=== PATIENT | female | born 1980 | race Hispanic/Latino ===

== ENCOUNTER 2020-10-29 17:28 | Inpatient (IN) | payer OTHER ==
[~2020-10-29] VITALS: Ht 167.6 cm; Wt 108.9 kg
[2020-10-29] MEDS ORDERED: ASPIRIN 81 MG CHEW TAB PO ONE ×2 (18:15→20:00)
[2020-10-29 18:16] LABS: BASOPHILS # (AUTO) 0.1 (0.0-0.1); BASOPHILS % 0.8 % (0.0-1.0); EOSINOPHILS # (AUTO) 0.7 (0.0-0.4); HEMATOCRIT 30.7 % (34.2-44.1); LYMPHOCYTES # (AUTO) 3.7 (1.0-3.2); LYMPHOCYTES % 22.4 % (18.0-39.1); MEAN CORPUSCULAR HEMOGLOBIN 30.4 pg (28-32); MEAN CORPUSCULAR HGB CONC 32.6 g/dL (31-35); MEAN CORPUSCULAR VOLUME 93.3 fL (81-99); MONOCYTES % 5.9 % (4.4-11.3); NEUTROPHILS % 66.4 % (38.7-80.0); PLATELET COUNT 478 x10e3/uL (140-360); RED BLOOD COUNT 3.29 x10e6/uL (3.6-5.1); RED CELL DISTRIBUTION WIDTH 14.5 % (11.7-14.4)
[2020-10-29 18:28] LABS: INR 0.87; PARTIAL THROMBOPLASTIN TIME 28.4 seconds (23.8-35.5); PROTHROMBIN TIME 12.3 seconds (11.9-14.5)
[2020-10-29 18:37] LABS: ALBUMIN 1.5 g/dL (3.5-5.0); ALBUMIN/GLOBULIN RATIO 0.4 (0.8-2.0); ANION GAP 13.3 mmol/L (8-16); CALCIUM 7.5 mg/dL (8.4-10.2); CREATININE, SERUM 4.24 mg/dL (0.57-1.11); POTASSIUM 4.3 mmol/L (3.5-5.1)
[2020-10-29 18:46] LABS: CREATINE KINASE MB 18.3 ng/mL (0-5.0)
[2020-10-29 19:10] LABS: CLARITY,URINE SL CLOUDY (CLEAR); COLOR,URINE YELLOW (YELLOW)
[2020-10-29 19:11] LABS: KETONES,URINE NEGATIVE (NEGATIVE); LEUKOCYTE ESTERASE ,URINE NEGATIVE (NEGATIVE); NITRITE,URINE NEGATIVE (NEGATIVE); PROTEIN,URINE DIPSTICK >=300 (NEGATIVE); URINE UROBILINOGEN 0.2 mg/dL (0.2 - 1)
[2020-10-29 19:16] LABS: BACTERIA,URINE MODERATE /HPF; EPITHELIAL CELLS,URINE MODERATE /LPF; RBC,URINE 0-5 /HPF (0-5)
[2020-10-29] MEDS ORDERED: HYDRALAZINE HCL 20 MG/ML VIAL IV PRN (20:00)
[2020-10-29] MEDS ORDERED: METOPROLOL TARTRATE INJ 1 MG/ML VIAL IV ONE (20:00)
[2020-10-29] MEDS ORDERED: METOPROLOL TARTRATE INJ 1 MG/ML VIAL ONE (20:02)
[2020-10-29 20:09] LABS: AMPHETAMINES SCREEN,URINE NEGATIVE (NEGATIVE); BENZODIAZEPINES SCREEN,URINE NEGATIVE (NEGATIVE); PHENCYCLIDINE SCREEN,URINE NEGATIVE (NEGATIVE)
[2020-10-29] MEDS ORDERED: SODIUM BICARBONATE 8.4% INJ 50 ML SYR IV STA (20:21)
[2020-10-29] MEDS ORDERED: ONDANSETRON HCL INJ 2MG/ML 2ML 2 MG/ML VIAL IV STA (20:58)
[2020-10-29] MEDS ORDERED: LOSARTAN POTAS100 MG PO (21:59)
[2020-10-29] MEDS ORDERED: OZEMPIC0.25 MG/0. SC (21:59)
[2020-10-29] MEDS ORDERED: VITAMIN D PO (21:59)
[2020-10-29] MEDS ORDERED: AURYXIA210 MG PO (21:59)
[2020-10-29] MEDS ORDERED: SIMVASTATIN40 MG PO (21:59)
[2020-10-29] MEDS ORDERED: BASAGLAR K100 UNIT/1 SQ (21:59)
[2020-10-29] MEDS ORDERED: LASIX20 MG PO (21:59)
[2020-10-29 22:28] VITALS: BP 173/101
[2020-10-29 22:53] VITALS: BP 155/85
[2020-10-29 22:55] VITALS: BP 155/85
[2020-10-29 23:28] VITALS: BP 156/94
[2020-10-30] VITALS (18 sets, daily range): BP systolic 147–171; BP diastolic 74–95
[2020-10-30] MEDS ORDERED: TEMAZEPAM 7.5 MG CAP PO PRN (03:45)
[2020-10-30] MEDS ORDERED: POLYETHYLENE GLYCOL 3350 17 GM PACK PO PRN (03:45)
[2020-10-30 05:01] LABS: BASOPHILS # (AUTO) 0.1 (0.0-0.1); BASOPHILS % 0.9 % (0.0-1.0); EOSINOPHILS # (AUTO) 0.7 (0.0-0.4); EOSINOPHILS % 5.2 % (0.0-6.0); HEMATOCRIT 25.9 % (34.2-44.1); HEMOGLOBIN 8.5 g/dL (12.0-16.0); LYMPHOCYTES # (AUTO) 3.1 (1.0-3.2); LYMPHOCYTES % 24.6 % (18.0-39.1); MEAN CORPUSCULAR HEMOGLOBIN 30.2 pg (28-32); MEAN CORPUSCULAR HGB CONC 32.8 g/dL (31-35); MEAN CORPUSCULAR VOLUME 92.2 fL (81-99); MONOCYTES # (AUTO) 0.9 (0.2-0.8); MONOCYTES % 6.8 % (4.4-11.3); NEUTROPHILS % 62.1 % (38.7-80.0); PLATELET COUNT 400 x10e3/uL (140-360); RED BLOOD COUNT 2.81 x10e6/uL (3.6-5.1)
[2020-10-30 05:23] LABS: ALBUMIN 1.2 g/dL (3.5-5.0); ALBUMIN/GLOBULIN RATIO 0.4 (0.8-2.0); ANION GAP 9.8 mmol/L (8-16); CALCIUM 7.2 mg/dL (8.4-10.2); CREATININE, SERUM 3.99 mg/dL (0.57-1.11); POTASSIUM 3.8 mmol/L (3.5-5.1)
[2020-10-30 06:08] LABS: CREATINE KINASE MB 13.3 ng/mL (0-5.0)
[2020-10-30] MEDS: ACETAMINOPHEN 325 MG TAB PO PRN ×2 (07:40→16:29)
[2020-10-30] MEDS: FAMOTIDINE 20 MG TAB PO SCH ×2 (07:44→16:28)
[2020-10-30] MEDS ORDERED: HYDRALAZINE HCL 20 MG/ML VIAL IV PRN (07:45)
[2020-10-30] MEDS ORDERED: DEXTROSE 50% SYRINGE 50 ML IV PRN (07:45)
[2020-10-30] MEDS: DOCUSATE SODIUM 100 MG CAP PO SCH ×2 (08:35→16:28)
[2020-10-30] MEDS: HEPARIN SOD (PORCINE) 5,000 UNIT/ML VIAL SC SCH ×2 (08:51→21:00)
[2020-10-30] MEDS ORDERED: FUROSEMIDE 20 MG TAB PO SCH (09:00)
[2020-10-30] MEDS ORDERED: HEPARIN SOD (PORCINE) 1000 UNIT/ML SDV ONE (09:27)
[2020-10-30] MEDS ORDERED: LIDOCAINE HCL 1% LOCAL INJ 20 ML VIAL ONE (09:27)
[2020-10-30] MEDS ORDERED: INSULIN REGULAR, HUMAN 100 UNIT/1 ML 3ML VIAL SQ SCH (11:30)
[2020-10-30] MEDS ORDERED: CLONIDINE HCL 0.1 MG TAB PO PRN (11:45)
[2020-10-30] MEDS ORDERED: MANNITOL 25% 12.5GM/50 ML VIAL IV PRN (13:15)
[2020-10-30] MEDS ORDERED: HEPARIN SOD (PORCINE) 1000 UNIT/ML SDV IV PRN (13:15)
[2020-10-30] MEDS ORDERED: SODIUM CHLORIDE 0.9% 1000ML 2,000 ML IV PRN (13:15)
[2020-10-30 14:10] LABS: ANION GAP 14.3 mmol/L (8-16); CALCIUM 7.4 mg/dL (8.4-10.2); CREATININE, SERUM 3.98 mg/dL (0.57-1.11); POTASSIUM 4.3 mmol/L (3.5-5.1)
[2020-10-30] MEDS ORDERED: SODIUM CHLORIDE 0.9% 1000ML 2,000 ML ONE (14:21)
[2020-10-30] MEDS ORDERED: MANNITOL 25% 12.5GM/50ML 100 ML ONE (14:21)
[2020-10-30 14:42] LABS: CREATINE KINASE MB 13.3 ng/mL (0-5.0)
[2020-10-30 15:15] LABS: FREE T4 (FREE THYROXINE) 0.8 ng/dL (0.8-1.8); THYROID STIMULATING HORMONE 3.178 uIU/mL (0.350-4.940)
[2020-10-30] MEDS: INSULIN LISPRO 100 UNIT/1 ML 3ML VIAL SQ SCH ×2 (16:30→20:28)
[2020-10-30 18:41] LABS: BASOPHILS # (AUTO) 0.1 (0.0-0.1); BASOPHILS % 0.9 % (0.0-1.0); EOSINOPHILS # (AUTO) 0.5 (0.0-0.4); EOSINOPHILS % 3.7 % (0.0-6.0); HEMATOCRIT 28.3 % (34.2-44.1); HEMOGLOBIN 9.3 g/dL (12.0-16.0); LYMPHOCYTES # (AUTO) 2.4 (1.0-3.2); LYMPHOCYTES % 18.9 % (18.0-39.1); MEAN CORPUSCULAR HEMOGLOBIN 30.3 pg (28-32); MEAN CORPUSCULAR HGB CONC 32.9 g/dL (31-35); MEAN CORPUSCULAR VOLUME 92.2 fL (81-99); MONOCYTES # (AUTO) 0.9 (0.2-0.8); MONOCYTES % 6.9 % (4.4-11.3); NEUTROPHILS # (AUTO) 8.9 (2.1-6.9); NEUTROPHILS % 69.1 % (38.7-80.0); PLATELET COUNT 381 x10e3/uL (140-360); RED BLOOD COUNT 3.07 x10e6/uL (3.6-5.1); RED CELL DISTRIBUTION WIDTH 14.5 % (11.7-14.4)
[2020-10-30 19:06] LABS: CREATINE KINASE MB 10.9 ng/mL (0-5.0)
[2020-10-30] MEDS: NIFEDIPINE CR 30 MG TAB PO SCH (20:38)
[2020-10-30] MEDS: SIMVASTATIN 40 MG TAB PO SCH (20:38)
[2020-10-31] VITALS (10 sets, daily range): BP systolic 104–163; BP diastolic 56–87
[2020-10-31 05:53] LABS: BASOPHILS # (AUTO) 0.1 (0.0-0.1); BASOPHILS % 0.8 % (0.0-1.0); EOSINOPHILS # (AUTO) 0.7 (0.0-0.4); EOSINOPHILS % 5.8 % (0.0-6.0); HEMATOCRIT 28.4 % (34.2-44.1); HEMOGLOBIN 9.2 g/dL (12.0-16.0); LYMPHOCYTES # (AUTO) 3.3 (1.0-3.2); MEAN CORPUSCULAR HEMOGLOBIN 30.6 pg (28-32); MEAN CORPUSCULAR HGB CONC 32.4 g/dL (31-35); MEAN CORPUSCULAR VOLUME 94.4 fL (81-99); MONOCYTES # (AUTO) 0.8 (0.2-0.8); MONOCYTES % 6.9 % (4.4-11.3); NEUTROPHILS # (AUTO) 6.9 (2.1-6.9); NEUTROPHILS % 58.1 % (38.7-80.0); PLATELET COUNT 386 x10e3/uL (140-360); RED BLOOD COUNT 3.01 x10e6/uL (3.6-5.1); RED CELL DISTRIBUTION WIDTH 14.7 % (11.7-14.4)
[2020-10-31 06:05] LABS: CHOL/HDL RATIO 2.3 (3.0-3.6); MAGNESIUM 2.1 MG/DL (1.3-2.1); PHOSPHORUS 5.5 MG/DL (2.3-4.7)
[2020-10-31 06:17] LABS: ALBUMIN 1.3 g/dL (3.5-5.0); ALBUMIN/GLOBULIN RATIO 0.4 (0.8-2.0); ANION GAP 11.1 mmol/L (8-16); CALCIUM 7.4 mg/dL (8.4-10.2); CREATININE, SERUM 3.81 mg/dL (0.57-1.11); POTASSIUM 4.1 mmol/L (3.5-5.1)
[2020-10-31 06:25] LABS: THYROID STIMULATING HORMONE 4.179 uIU/mL (0.350-4.940)
[2020-10-31] MEDS: FAMOTIDINE 20 MG TAB PO SCH ×2 (07:30→17:24)
[2020-10-31] MEDS: INSULIN LISPRO 100 UNIT/1 ML 3ML VIAL SQ SCH ×4 (07:30→20:21)
[2020-10-31] MEDS: DOCUSATE SODIUM 100 MG CAP PO SCH ×2 (07:52→17:24)
[2020-10-31] MEDS ORDERED: SODIUM CHLORIDE 0.9% IV ONE (09:30)
[2020-10-31] MEDS ORDERED: ALTEPLASE IV ONE ×2 (09:30)
[2020-10-31] MEDS ORDERED: DEXTROSE 5% IV ONE (09:30)
[2020-10-31] MEDS ORDERED: ALTEPLASE RECOMBINANT 2 MG/2 ML VIAL IV NR (09:45)
[2020-10-31] MEDS: HEPARIN SOD (PORCINE) 5,000 UNIT/ML VIAL SC SCH ×2 (09:47→20:32)
[2020-10-31] MEDS: ACETAMINOPHEN 325 MG TAB PO PRN (13:36)
[2020-10-31] MEDS: NIFEDIPINE CR 30 MG TAB PO SCH (20:31)
[2020-10-31] MEDS: SIMVASTATIN 40 MG TAB PO SCH (20:31)
[2020-11-01] VITALS (9 sets, daily range): BP systolic 117–164; BP diastolic 63–88
[2020-11-01 06:01] LABS: BASOPHILS # (AUTO) 0.1 (0.0-0.1); BASOPHILS % 0.7 % (0.0-1.0); EOSINOPHILS # (AUTO) 0.8 (0.0-0.4); EOSINOPHILS % 6.6 % (0.0-6.0); HEMATOCRIT 24.5 % (34.2-44.1); HEMOGLOBIN 7.7 g/dL (12.0-16.0); LYMPHOCYTES # (AUTO) 3.1 (1.0-3.2); LYMPHOCYTES % 27.5 % (18.0-39.1); MEAN CORPUSCULAR HEMOGLOBIN 29.6 pg (28-32); MEAN CORPUSCULAR HGB CONC 31.4 g/dL (31-35); MEAN CORPUSCULAR VOLUME 94.2 fL (81-99); MONOCYTES % 8.5 % (4.4-11.3); NEUTROPHILS # (AUTO) 6.4 (2.1-6.9); NEUTROPHILS % 56.1 % (38.7-80.0); PLATELET COUNT 282 x10e3/uL (140-360); RED CELL DISTRIBUTION WIDTH 14.4 % (11.7-14.4)
[2020-11-01 06:27] LABS: ANION GAP 10.2 mmol/L (8-16); CREATININE, SERUM 3.44 mg/dL (0.57-1.11); POTASSIUM 4.2 mmol/L (3.5-5.1)
[2020-11-01 06:36] LABS: CALCIUM 6.9 mg/dL (8.4-10.2)
[2020-11-01] MEDS ORDERED: CALCIUM GLUCONATE 10% INJ 4.65 MEQ in SODIUM CHLORIDE 0.9% 50ML 50 ML IV ONE (07:45)
[2020-11-01] MEDS: INSULIN LISPRO 100 UNIT/1 ML 3ML VIAL SQ SCH ×4 (08:30→20:54)
[2020-11-01] MEDS: HEPARIN SOD (PORCINE) 5,000 UNIT/ML VIAL SC SCH ×2 (08:30→21:47)
[2020-11-01] MEDS: DOCUSATE SODIUM 100 MG CAP PO SCH ×2 (08:37→17:38)
[2020-11-01] MEDS: FAMOTIDINE 20 MG TAB PO SCH ×2 (08:37→17:38)
[2020-11-01] MEDS: METOPROLOL TARTRATE 25 MG TAB PO SCH ×2 (08:38→17:39)
[2020-11-01] MEDS ORDERED: SODIUM CHLORIDE 0.9% 250ML 250 ML ONE (10:24)
[2020-11-01] MEDS: ACETAMINOPHEN 325 MG TAB PO PRN ×2 (10:33→22:34)
[2020-11-01] MEDS: NIFEDIPINE CR 30 MG TAB PO SCH (21:08)
[2020-11-01] MEDS: SIMVASTATIN 40 MG TAB PO SCH (22:33)
[2020-11-02] VITALS (9 sets, daily range): BP systolic 130–160; BP diastolic 64–96
[2020-11-02 05:14] LABS: BASOPHILS # (AUTO) 0.1 (0.0-0.1); BASOPHILS % 0.8 % (0.0-1.0); EOSINOPHILS # (AUTO) 0.8 (0.0-0.4); EOSINOPHILS % 6.9 % (0.0-6.0); HEMATOCRIT 25.7 % (34.2-44.1); HEMOGLOBIN 8.2 g/dL (12.0-16.0); LYMPHOCYTES # (AUTO) 3.1 (1.0-3.2); LYMPHOCYTES % 26.5 % (18.0-39.1); MEAN CORPUSCULAR HEMOGLOBIN 30.1 pg (28-32); MEAN CORPUSCULAR HGB CONC 31.9 g/dL (31-35); MEAN CORPUSCULAR VOLUME 94.5 fL (81-99); MONOCYTES # (AUTO) 0.9 (0.2-0.8); MONOCYTES % 7.7 % (4.4-11.3); NEUTROPHILS # (AUTO) 6.8 (2.1-6.9); NEUTROPHILS % 57.6 % (38.7-80.0); PLATELET COUNT 280 x10e3/uL (140-360); RED BLOOD COUNT 2.72 x10e6/uL (3.6-5.1); RED CELL DISTRIBUTION WIDTH 14.2 % (11.7-14.4)
[2020-11-02 05:37] LABS: ANION GAP 12.2 mmol/L (8-16); CALCIUM 7.1 mg/dL (8.4-10.2); CREATININE, SERUM 4.25 mg/dL (0.57-1.11); POTASSIUM 4.2 mmol/L (3.5-5.1)
[2020-11-02] MEDS: FAMOTIDINE 20 MG TAB PO SCH ×2 (07:30→16:56)
[2020-11-02] MEDS: DOCUSATE SODIUM 100 MG CAP PO SCH ×2 (09:00→16:57)
[2020-11-02] MEDS: HEPARIN SOD (PORCINE) 5,000 UNIT/ML VIAL SC SCH ×2 (09:00→19:59)
[2020-11-02] MEDS: INSULIN LISPRO 100 UNIT/1 ML 3ML VIAL SQ SCH ×4 (09:09→21:00)
[2020-11-02] MEDS: METOPROLOL TARTRATE 25 MG TAB PO SCH ×2 (09:10→16:57)
[2020-11-02] MEDS ORDERED: SODIUM CHLORIDE 0.9% 1000ML 1,000 ML ONE (16:30)
[2020-11-02] MEDS: NIFEDIPINE CR 30 MG TAB PO SCH (22:10)
[2020-11-02] MEDS: SIMVASTATIN 40 MG TAB PO SCH (22:10)
[2020-11-03] VITALS (8 sets, daily range): BP systolic 115–152; BP diastolic 55–85
[2020-11-03 04:52] LABS: BASOPHILS # (AUTO) 0.1 (0.0-0.1); BASOPHILS % 0.7 % (0.0-1.0); EOSINOPHILS # (AUTO) 0.7 (0.0-0.4); HEMATOCRIT 26.5 % (34.2-44.1); HEMOGLOBIN 8.4 g/dL (12.0-16.0); LYMPHOCYTES # (AUTO) 2.3 (1.0-3.2); LYMPHOCYTES % 19.6 % (18.0-39.1); MEAN CORPUSCULAR HEMOGLOBIN 30.2 pg (28-32); MEAN CORPUSCULAR HGB CONC 31.7 g/dL (31-35); MEAN CORPUSCULAR VOLUME 95.3 fL (81-99); MONOCYTES # (AUTO) 0.8 (0.2-0.8); MONOCYTES % 6.6 % (4.4-11.3); NEUTROPHILS # (AUTO) 7.7 (2.1-6.9); NEUTROPHILS % 66.6 % (38.7-80.0); PLATELET COUNT 294 x10e3/uL (140-360); RED BLOOD COUNT 2.78 x10e6/uL (3.6-5.1); RED CELL DISTRIBUTION WIDTH 13.6 % (11.7-14.4)
[2020-11-03 05:16] LABS: ANION GAP 10.3 mmol/L (8-16); CALCIUM 7.1 mg/dL (8.4-10.2); CREATININE, SERUM 4.29 mg/dL (0.57-1.11); POTASSIUM 4.3 mmol/L (3.5-5.1)
[2020-11-03] MEDS: INSULIN LISPRO 100 UNIT/1 ML 3ML VIAL SQ SCH ×4 (07:26→21:00)
[2020-11-03] MEDS: HEPARIN SOD (PORCINE) 5,000 UNIT/ML VIAL SC SCH ×2 (07:27→21:04)
[2020-11-03] MEDS: FAMOTIDINE 20 MG TAB PO SCH ×4 (07:30→20:25)
[2020-11-03] MEDS: METOPROLOL TARTRATE 25 MG TAB PO SCH ×2 (08:32→18:21)
[2020-11-03] MEDS: DOCUSATE SODIUM 100 MG CAP PO SCH ×2 (08:32→17:00)
[2020-11-03] MEDS: ACETAMINOPHEN 325 MG TAB PO PRN (09:25)
[2020-11-03] MEDS ORDERED: SODIUM CHLORIDE 0.9% 500ML 500 ML ONE (12:38)
[2020-11-03] MEDS ORDERED: BUPIVACAINE HCL 0.5% INJ 30 ML VIAL INJ ONE (12:55)
[2020-11-03] MEDS ORDERED: CEFAZOLIN SOD 1 GM/NS 50ML 50 ML IV ONE (12:59)
[2020-11-03] MEDS ORDERED: SODIUM CHLORIDE 0.9% 250ML 250 ML ONE (13:29)
[2020-11-03] MEDS ORDERED: LIDOCAINE HCL 1% LOCAL INJ 20 ML VIAL ONE (13:29)
[2020-11-03] MEDS ORDERED: HEPARIN SOD (PORCINE) 1000 UNIT/ML SDV ONE (13:37)
[2020-11-03] MEDS ORDERED: MIDAZOLAM HCL 2 MG/2 ML VIAL ONE ×2 (13:37→19:48)
[2020-11-03] MEDS ORDERED: FENTANYL CITRATE/PF 100MCG/2 ML INJ ONE ×2 (13:37→19:48)
[2020-11-03] MEDS ORDERED: GLYCOPYRROLATE INJ 0.2 MG/ML VIAL ONE (13:38)
[2020-11-03] MEDS ORDERED: PROPOFOL IV EMULSION 10 MG/ML 20 ML VIAL ONE (13:38)
[2020-11-03] MEDS ORDERED: LIDOCAINE HCL 2% LOCAL INJ 5 ML SDV VIAL INJ ONE (13:38)
[2020-11-03] MEDS ORDERED: NEOSTIGMINE 1 MG/ML 10ML VIAL ONE (13:38)
[2020-11-03] MEDS ORDERED: ONDANSETRON HCL INJ 2MG/ML 2ML 2 MG/ML VIAL ONE (13:38)
[2020-11-03] MEDS ORDERED: SEVOFLURANE INHAL SOLN 250 ML PEN BTL ONE (13:38)
[2020-11-03] MEDS ORDERED: ROCURONIUM BROMIDE 10 MG/ML 5ML VIAL IV ONE (13:38)
[2020-11-03] MEDS ORDERED: HYDROMORPHONE 1MG/1ML INJ ONE (14:01)
[2020-11-03] MEDS: ONDANSETRON HCL INJ 2MG/ML 2ML 2 MG/ML VIAL IV PRN ×2 (16:51→21:38)
[2020-11-03] MEDS: MORPHINE SULFATE INJ 4 MG/ML INJ 1ML IV PRN ×2 (16:54→21:54)
[2020-11-03] MEDS: SIMVASTATIN 40 MG TAB PO SCH (20:57)
[2020-11-03] MEDS: NIFEDIPINE CR 30 MG TAB PO SCH (20:57)
[2020-11-03] MEDS: HYDROCODONE/APAP 5MG-325MG TAB PO PRN (21:03)
[2020-11-04] VITALS: BP 139/75
[2020-11-04] MEDS: ONDANSETRON HCL INJ 2MG/ML 2ML 2 MG/ML VIAL IV PRN (02:41)
[2020-11-04] MEDS: MORPHINE SULFATE INJ 4 MG/ML INJ 1ML IV PRN (02:52)
[2020-11-04 04:00] VITALS: BP 145/79
[2020-11-04 07:01] LABS: BASOPHILS # (AUTO) 0.1 (0.0-0.1); BASOPHILS % 0.6 % (0.0-1.0); EOSINOPHILS # (AUTO) 0.4 (0.0-0.4); EOSINOPHILS % 2.9 % (0.0-6.0); HEMATOCRIT 29.7 % (34.2-44.1); HEMOGLOBIN 9.4 g/dL (12.0-16.0); LYMPHOCYTES # (AUTO) 2.3 (1.0-3.2); LYMPHOCYTES % 15.6 % (18.0-39.1); MEAN CORPUSCULAR HEMOGLOBIN 30.5 pg (28-32); MEAN CORPUSCULAR HGB CONC 31.6 g/dL (31-35); MEAN CORPUSCULAR VOLUME 96.4 fL (81-99); MONOCYTES # (AUTO) 0.8 (0.2-0.8); MONOCYTES % 5.6 % (4.4-11.3); NEUTROPHILS # (AUTO) 10.9 (2.1-6.9); NEUTROPHILS % 74.8 % (38.7-80.0); PLATELET COUNT 311 x10e3/uL (140-360); RED BLOOD COUNT 3.08 x10e6/uL (3.6-5.1)
[2020-11-04] MEDS: INSULIN LISPRO 100 UNIT/1 ML 3ML VIAL SQ SCH ×3 (07:10→16:22)
[2020-11-04 07:29] LABS: ANION GAP 12.5 mmol/L (8-16); CALCIUM 7.5 mg/dL (8.4-10.2); CREATININE, SERUM 4.26 mg/dL (0.57-1.11); POTASSIUM 4.5 mmol/L (3.5-5.1)
[2020-11-04 07:47] VITALS: BP 171/90
[2020-11-04 07:51] VITALS: BP 171/90
[2020-11-04] MEDS: DOCUSATE SODIUM 100 MG CAP PO SCH ×2 (07:59→16:30)
[2020-11-04] MEDS: METOPROLOL TARTRATE 25 MG TAB PO SCH ×2 (07:59→16:30)
[2020-11-04] MEDS: HEPARIN SOD (PORCINE) 5,000 UNIT/ML VIAL SC SCH (08:00)
[2020-11-04] MEDS ORDERED: LOPRESSOR25 MG PO (08:52)
[2020-11-04] MEDS ORDERED: NIFEDIPINE ER30 M1 PO (08:52)
[2020-11-04] MEDS ORDERED: CLONIDINE HCL0.1 MG PO (08:52)
[2020-11-04 11:52] VITALS: BP 129/81
[2020-11-04] MEDS: HYDROCODONE/APAP 5MG-325MG TAB PO PRN (14:57)
[2020-11-04] MEDS ORDERED: VANCOMYCIN 1GM/NS 250 ML 250 ML IV ONE (15:00)
[2020-11-04] MEDS ORDERED: TYLENOL # 31 EA PO (15:01)
[2020-11-04] MEDS ORDERED: BASAGLAR K100 UNIT/1 SQ (15:05)
[2020-11-04] MEDS: FAMOTIDINE 20 MG TAB PO SCH (16:22)
[2020-11-04 16:32] VITALS: BP 146/81
== END 2020-11-04 17:26 | disposition home or self-care (01) | DRG 673 ==
LOC: ER 17:58 → ERHOLD 19:00 → ICU 22:24 → MED/SURG 10-30 10:51
PROVIDERS: ADMIT Internal Medicine; ATTEND Internal Medicine
PROC: 02H633Z Insertion of Infusion Device into Right Atrium, Percutaneous Approach (ICD-10-PCS; 2020-10-30)
PROC: B548ZZA Ultrasonography of Superior Vena Cava, Guidance (ICD-10-PCS; 2020-10-30)
PROC: 02PAX3Z Removal of Infusion Device from Heart, External Approach (ICD-10-PCS; 2020-11-02)
PROC: 0WHG43Z Insertion of Infusion Device into Peritoneal Cavity, Percutaneous Endoscopic Approach (ICD-10-PCS; principal; 2020-11-03 12:58)
DX: I12.0 Hypertensive chronic kidney disease with stage 5 chronic kidney disease or end stage renal disease (principal); N18.6 End stage renal disease; T82.49XA Other complication of vascular dialysis catheter, initial encounter; N17.9 Acute kidney failure, unspecified; E11.22 Type 2 diabetes mellitus with diabetic chronic kidney disease; E11.65 Type 2 diabetes mellitus with hyperglycemia; E87.70 Fluid overload, unspecified; E78.5 Hyperlipidemia, unspecified; E11.319 Type 2 diabetes mellitus with unspecified diabetic retinopathy without macular edema; E11.42 Type 2 diabetes mellitus with diabetic polyneuropathy; Z79.4 Long term (current) use of insulin; Z83.3 Family history of diabetes mellitus; R94.31 Abnormal electrocardiogram [ECG] [EKG]; D63.1 Anemia in chronic kidney disease; E66.01 Morbid (severe) obesity due to excess calories; Z68.38 Body mass index [BMI] 38.0-38.9, adult; J02.9 Acute pharyngitis, unspecified; Z20.822 Contact with and (suspected) exposure to COVID-19
CPT/HCPCS: 36415; 36556; 36558; 71045; 74470; 76937; 77001; 80048; 80053; 80061; 80307; 81001; 81025; 82040; 82550; 82553; 82948; 83036; 83735; 83880; 84100; 84439; 84443; 84484; 85025; 85610; 85730; 86704; 86706; 87340; 93005; 93306; 99284; C1752; C1769; C1892; J0360; J0610; J0690; J1170; J1644; J2001; J2150; J2250; J2270; J2405; J2710; J2997; J3010; J3370; J7030; J7040; J7050; U0002

== ENCOUNTER 2021-06-05 19:16 | Inpatient (IN) | payer OTHER ==
[~2021-06-05] VITALS: Ht 350.5 cm; Wt 91.6 kg
[~2021-06-05 19:16] MED LIST: AURYXIA210 MG PO; BASAGLAR K100 UNIT/1 SQ; CLONIDINE HCL0.1 MG PO; LASIX20 MG PO; LOPRESSOR25 MG PO; LOSARTAN POTAS100 MG PO; NIFEDIPINE ER30 M1 PO; OZEMPIC0.25 MG/0. SC; SIMVASTATIN40 MG PO; TYLENOL # 31 EA PO; VITAMIN D PO
[2021-06-05 20:30] VITALS: BP 193/109
[2021-06-05 21:14] VITALS: BP 193/109
[2021-06-05] MEDS: HYDRALAZINE HCL 20 MG/ML VIAL IV PRN ×2 (21:30→23:02)
[2021-06-05] MEDS: ONDANSETRON HCL INJ 2MG/ML 2ML 2 MG/ML VIAL IV PRN ×2 (21:30→21:56)
[2021-06-05] MEDS ORDERED: DEXTROSE 50% SYRINGE 50 ML IV PRN (21:30)
[2021-06-05] MEDS ORDERED: HYDRALAZINE HCL 20 MG/ML VIAL ONE (21:34)
[2021-06-06] VITALS (9 sets, daily range): BP systolic 122–193; BP diastolic 58–109
[2021-06-06] MEDS ORDERED: MAGNESIUM/ALUMINUM/SIMETHICONE 30 ML UDC PO PRN (02:00)
[2021-06-06] MEDS ORDERED: FAMOTIDINE 20 MG/2 ML VIAL IV STA (02:00)
[2021-06-06] MEDS: ONDANSETRON HCL INJ 2MG/ML 2ML 2 MG/ML VIAL IV PRN ×3 (02:10→16:50)
[2021-06-06] MEDS ORDERED: HYDRALAZINE HCL 20 MG/ML VIAL IV STA (05:29)
[2021-06-06 06:02] LABS: BASOPHILS # (AUTO) 0.1 (0.0-0.1); BASOPHILS % 0.4 % (0.0-1.0); EOSINOPHILS # (AUTO) 0.1 (0.0-0.4); EOSINOPHILS % 0.5 % (0.0-6.0); HEMATOCRIT 33.3 % (34.2-44.1); HEMOGLOBIN 11.6 g/dL (12.0-16.0); LYMPHOCYTES # (AUTO) 2.9 (1.0-3.2); LYMPHOCYTES % 17.1 % (18.0-39.1); MEAN CORPUSCULAR HEMOGLOBIN 31.4 pg (28-32); MEAN CORPUSCULAR HGB CONC 34.8 g/dL (31-35); MEAN CORPUSCULAR VOLUME 90.2 fL (81-99); MONOCYTES # (AUTO) 1.2 (0.2-0.8); MONOCYTES % 6.7 % (4.4-11.3); NEUTROPHILS # (AUTO) 12.7 (2.1-6.9); NEUTROPHILS % 74.4 % (38.7-80.0); PLATELET COUNT 366 x10e3/uL (140-360); RED BLOOD COUNT 3.69 x10e6/uL (3.6-5.1); RED CELL DISTRIBUTION WIDTH 11.2 % (11.7-14.4)
[2021-06-06 06:26] LABS: ANION GAP 17.7 mmol/L (8-16); CALCIUM 7.5 mg/dL (8.4-10.2); CREATININE, SERUM 5.08 mg/dL (0.57-1.11); PHOSPHORUS 5.5 MG/DL (2.3-4.7)
[2021-06-06 06:28] LABS: POTASSIUM 2.7 mmol/L (3.5-5.1)
[2021-06-06] MEDS ORDERED: POTASSIUM CHLORIDE 20 MEQ TAB CR PO STA (07:03)
[2021-06-06] MEDS ORDERED: POTASSIUM CHL 40 MEQ in SODIUM CHLORIDE 0.9% 250ML 230 ML IV STA (07:03)
[2021-06-06] MEDS: INSULIN REGULAR, HUMAN 100 UNIT/1 ML SQ SCH ×4 (07:30→21:47)
[2021-06-06] MEDS ORDERED: SODIUM CHLORIDE 0.9% 250ML 250 ML ONE (11:21)
[2021-06-06] MEDS ORDERED: CLONIDINE HCL 0.1 MG TAB PO PRN (13:15)
[2021-06-06] MEDS ORDERED: PROMETHAZINE 12.5MG/ NACL 0.9% 12.5 MG/50 ML BAG IV PRN (13:15)
[2021-06-06] MEDS: CEFTRIAXONE 1 GM in SODIUM CHLORIDE 0.9% 50ML 50 ML IV SCH (13:15)
[2021-06-06] MEDS ORDERED: METRONIDAZOLE 500MG/NS 100ML 100 ML IV SCH (14:00)
[2021-06-06] MEDS: METRONIDAZOLE 500 MG TAB PO SCH ×2 (16:08→21:47)
[2021-06-06] MEDS: METOPROLOL TARTRATE 25 MG TAB PO SCH (16:55)
[2021-06-06 17:41] LABS: CLARITY,URINE HAZY (CLEAR); COLOR,URINE YELLOW (YELLOW); KETONES,URINE TRACE (NEGATIVE); LEUKOCYTE ESTERASE ,URINE NEGATIVE (NEGATIVE); NITRITE,URINE NEGATIVE (NEGATIVE); PROTEIN,URINE DIPSTICK >=300 (NEGATIVE); URINE UROBILINOGEN 0.2 mg/dL (0.2 - 1)
[2021-06-06 17:43] LABS: BACTERIA,URINE FEW /HPF; EPITHELIAL CELLS,URINE FEW /LPF
[2021-06-06 17:55] LABS: ANION GAP 13.5 mmol/L (8-16); CALCIUM 7.5 mg/dL (8.4-10.2); CREATININE, SERUM 5.55 mg/dL (0.57-1.11); POTASSIUM 3.5 mmol/L (3.5-5.1)
[2021-06-06] MEDS ORDERED: SIMVASTATIN 40 MG TAB PO SCH (21:00)
[2021-06-07] MEDS ORDERED: ONDANSETRON HCL INJ 2MG/ML 2ML 2 MG/ML VIAL IV PRN (02:15)
[2021-06-07 04:00] VITALS: BP 179/91
[2021-06-07 05:53] VITALS: BP 150/75
[2021-06-07] MEDS: METOCLOPRAMIDE HCL 10 MG/2ML VIAL IV SCH ×2 (06:00→12:28)
[2021-06-07] MEDS: METRONIDAZOLE 500 MG TAB PO SCH ×2 (06:00→12:28)
[2021-06-07 08:16] VITALS: BP 139/78
[2021-06-07] MEDS: INSULIN REGULAR, HUMAN 100 UNIT/1 ML SQ SCH ×2 (08:30→12:30)
[2021-06-07] MEDS ORDERED: VITAMIN D 1.25 MG PO SCH (09:00)
[2021-06-07 09:01] LABS: BASOPHILS # (AUTO) 0.1 (0.0-0.1); BASOPHILS % 0.7 % (0.0-1.0); EOSINOPHILS # (AUTO) 0.2 (0.0-0.4); EOSINOPHILS % 1.6 % (0.0-6.0); HEMATOCRIT 31.3 % (34.2-44.1); HEMOGLOBIN 10.7 g/dL (12.0-16.0); LYMPHOCYTES # (AUTO) 3.7 (1.0-3.2); LYMPHOCYTES % 26.5 % (18.0-39.1); MEAN CORPUSCULAR HEMOGLOBIN 31.4 pg (28-32); MEAN CORPUSCULAR HGB CONC 34.2 g/dL (31-35); MEAN CORPUSCULAR VOLUME 91.8 fL (81-99); MONOCYTES # (AUTO) 1.1 (0.2-0.8); MONOCYTES % 7.9 % (4.4-11.3); NEUTROPHILS # (AUTO) 8.7 (2.1-6.9); NEUTROPHILS % 62.6 % (38.7-80.0); PLATELET COUNT 315 x10e3/uL (140-360); RED BLOOD COUNT 3.41 x10e6/uL (3.6-5.1); RED CELL DISTRIBUTION WIDTH 11.6 % (11.7-14.4)
[2021-06-07 09:19] VITALS: BP 139/78
[2021-06-07 09:19] LABS: ANION GAP 13.9 mmol/L (8-16); CALCIUM 7.6 mg/dL (8.4-10.2); CREATININE, SERUM 5.41 mg/dL (0.57-1.11)
[2021-06-07] MEDS ORDERED: SODIUM CHLORIDE 0.9% 100 ML ONE (09:25)
[2021-06-07 09:30] LABS: POTASSIUM 2.9 mmol/L (3.5-5.1)
[2021-06-07] MEDS ORDERED: POTASSIUM CHLORIDE 20 MEQ TAB CR PO ONE ×2 (09:30→13:00)
[2021-06-07] MEDS: CEFTRIAXONE 1 GM in SODIUM CHLORIDE 0.9% 50ML 50 ML IV SCH (09:43)
[2021-06-07] MEDS: METOPROLOL TARTRATE 25 MG TAB PO SCH (09:44)
[2021-06-07 09:58] LABS: ALBUMIN 2.3 g/dL (3.5-5.0); ALBUMIN/GLOBULIN RATIO 0.7 (0.8-2.0); CALCIUM 7.4 mg/dL (8.4-10.2); CREATININE, SERUM 5.42 mg/dL (0.57-1.11)
[2021-06-07] MEDS ORDERED: ERGOCALCIFEROL 50,000 UNIT CAP PO SCH (10:00)
[2021-06-07 11:37] LABS: RBC,BODY FLUID < 200 cells/uL; WBC,BODY FLUID 4 cells/uL
[2021-06-07 11:38] LABS: BODY FLUID APPEARANCE CLEAR; BODY FLUID COLOR COLORLESS; BODY FLUID TYPE PERITONEAL
[2021-06-07 11:56] VITALS: BP 157/92
[2021-06-07 15:16] VITALS: BP 111/88
[2021-06-07] MEDS ORDERED: INSULIN GLARGINE HUM REC ANLOG 25 UNIT SQ SCH (21:00)
[2021-06-07] MEDS ORDERED: [UNRECOGNIZED DRUG - OTHER] SQ SCH (21:00)
[2021-06-07] MEDS ORDERED: NIFEDIPINE CR 30 MG TAB PO SCH (21:00)
[2021-06-07] MEDS ORDERED: INSULIN GLARGINE 100 UNITS/ML VIAL SQ SCH (21:00)
== END 2021-06-07 15:45 | disposition left against medical advice (07) | DRG 391 ==
LOC: MED/SURG3 20:30
PROVIDERS: ADMIT Internal Medicine; ATTEND Internal Medicine
DX: K52.9 Noninfective gastroenteritis and colitis, unspecified (principal); N18.6 End stage renal disease; I12.0 Hypertensive chronic kidney disease with stage 5 chronic kidney disease or end stage renal disease; E87.2 Acidosis; K29.70 Gastritis, unspecified, without bleeding; R12 Heartburn; E11.22 Type 2 diabetes mellitus with diabetic chronic kidney disease; Z99.2 Dependence on renal dialysis; E78.00 Pure hypercholesterolemia, unspecified; D72.829 Elevated white blood cell count, unspecified; E87.6 Hypokalemia; D63.1 Anemia in chronic kidney disease; Z79.4 Long term (current) use of insulin
CPT/HCPCS: 36415; 71045; 80048; 80053; 81001; 82948; 84100; 85025; 87070; 87205; 89051; J0360; J0456; J0696; J1817; J2405; J2550; J2765; J3480; J7050